=== PATIENT | male | born 1950 | race Two or more races ===

== ENCOUNTER 2019-04-29 15:33 | Inpatient (IN) | payer OTHER ==
[~2019-04-29] VITALS: Ht 188 cm; Wt 97.1 kg
[2019-05-03] MEDS ORDERED: CRESTOR10 MG PO (09:10)
[2019-05-03] MEDS ORDERED: TAMS0.4C PO (09:10)
[2019-05-03] MEDS ORDERED: COZAAR50 MG PO (09:10)
[2019-05-03] MEDS ORDERED: [UNRECOGNIZED DRUG - OTHER] PO (09:11)
[2019-05-03] MEDS ORDERED: PROSCAR5 MG PO (11:20)
[2019-05-06] MEDS ORDERED: GAS RELIEF 8080 MG PO (16:04)
[2019-05-06] MEDS ORDERED: PROTONIX40 MG PO (16:04)
[2019-05-06] MEDS ORDERED: CARAFATE1 GM/10 ML PO (16:04)
[2019-05-06] MEDS ORDERED: POLY119PG PO (16:05)
[2019-05-06] MEDS ORDERED: PERCOCET 5-3251 EACH PO (16:05)
== END 2019-05-06 16:28 | disposition home or self-care (01) | DRG 327 ==
LOC: SURG 05-03 07:00 → SURH 05-05 05:15 → O/R 05-05 05:15 → EDBD 05-05 07:00 → SURG 05-05 07:00 → SURH 05-05 14:26
PROVIDERS: ADMIT Surgery
PROC: 0DV44ZZ Restriction of Esophagogastric Junction, Percutaneous Endoscopic Approach (ICD-10-PCS; 2019-05-05)
PROC: 0BQT4ZZ Repair Diaphragm, Percutaneous Endoscopic Approach (ICD-10-PCS; 2019-05-05)
PROC: 0WQF4ZZ Repair Abdominal Wall, Percutaneous Endoscopic Approach (ICD-10-PCS; 2019-05-05)
PROC: 0DJ08ZZ Inspection of Upper Intestinal Tract, Via Natural or Artificial Opening Endoscopic (ICD-10-PCS; 2019-05-05)
PROC: 0D844ZZ Division of Esophagogastric Junction, Percutaneous Endoscopic Approach (ICD-10-PCS; principal; 2019-05-05 07:00)
DX: K22.0 Achalasia of cardia (principal); J98.11 Atelectasis; K44.9 Diaphragmatic hernia without obstruction or gangrene; R13.19 Other dysphagia; K42.9 Umbilical hernia without obstruction or gangrene

== ENCOUNTER 2019-10-06 06:30 | Day surgery (SDC) | payer OTHER ==
[~2019-10-06 06:30] MED LIST: CARAFATE1 GM/10 ML PO; COZAAR50 MG PO; CRESTOR10 MG PO; GAS RELIEF 8080 MG PO; PERCOCET 5-3251 EACH PO; POLY119PG PO; PROSCAR5 MG PO; PROTONIX40 MG PO; TAMS0.4C PO; [UNRECOGNIZED DRUG - OTHER] PO
[2019-10-06] MEDS ORDERED: ULTRACET PO (16:54)
[2019-10-06] MEDS ORDERED: SURFAK240 M1 PO (16:54)
[2019-10-06] MEDS ORDERED: POLY119PG PO (16:54)
== END 2019-10-06 21:20 | disposition home or self-care (01) ==
LOC: CIR.AMB 06:30
DX: K42.9 Umbilical hernia without obstruction or gangrene (principal); K40.90 Unilateral inguinal hernia, without obstruction or gangrene, not specified as recurrent; K43.2 Incisional hernia without obstruction or gangrene